=== PATIENT | male | born 1990 | race Caucasian/White ===

== ENCOUNTER 2020-12-28 21:18 | Emergency (ER) | payer SELFPAY ==
[2020-12-28] MEDS ORDERED: Sodium Chloride 0.9% 10 ML Syringe FLUSH PRN (21:39)
[2020-12-28] MEDS ORDERED: HYDROmorphone 0.5 MG/0.5 ML Syringe IVPUSH ONE (21:39)
[2020-12-28] MEDS ORDERED: Ondansetron 4 MG/2 ML SDV IVPUSH ONE (21:39)
[2020-12-28] MEDS ORDERED: Famotidine 20 MG/2 ML SDV IVPUSH ONE (21:39)
[2020-12-28] MEDS ORDERED: Sodium Chloride 0.9% 1,000 ML IV SCH (21:45)
[2020-12-29] MEDS ORDERED: Lactated Ringers 1,000 ML IV ONE (00:15)
--- NOTE | 2020-12-29 00:54 | EDM.PDOC ---
ED HPI GENERAL MEDICAL PROBLEM - General Chief Complaint: Abdominal Pain Stated Complaint: STOMACH PAIN POSSIBLE OD ON ALLERGY MED Time Seen by Provider: 12/28/20 21:27 Source of Information: Reports: Patient, RN Notes Reviewed - History of Present Illness INITIAL COMMENTS - FREE TEXT/NARRATIVE: Onset of abd pain, not feeling well yesterday, became much more ill after eating out last evening. Has had multiple episodes of vomiting since last evening. Chills. No definite fever. No diarrhea. Pain is mainly upper mid abd without radiation. Abdominal Pain Score (Numeric/FACES): 5 - Related Data Allergies Allergy/AdvReac Type Severity Reaction Status Date / Time No Known Allergies Allergy Verified 12/28/20 21:33 Home Meds: Home Meds Loratadine [Claritin] 1 mg PO DAILY 12/28/20 [History] Past Medical History - Past Health History Medical/Surgical History: Denies Medical/Surgical History - Infectious Disease History Infectious Disease History: Reports: Novel Coronavirus Social & Family History - Tobacco Use Tobacco Use Status *Q: Never Tobacco User Second Hand Smoke Exposure: No - Caffeine Use Caffeine Use: Reports: None - Alcohol Use Days Per Week of Alcohol Use: 7 Number of Drinks Per Day: 6 Total Drinks Per Week: 42 - Recreational Drug Use Recreational Drug Use: Yes Recreational Drug Type: Reports: Marijuana/Hashish Recreational Drug Use Frequency: Daily ED ROS GENERAL - Review of Systems Review Of Systems: See Below Constitutional: Reports: Chills. Denies: Fever HEENT: Reports: No Symptoms Respiratory: Denies: Shortness of Breath Cardiovascular: Denies: Chest Pain GI/Abdominal: Reports: Abdominal Pain, Nausea, Vomiting. Denies: Constipation, Diarrhea Musculoskeletal: Denies: Back Pain Skin: Reports: No Symptoms Neurological: Reports: Dizziness ED EXAM, GI/ABD - Physical Exam Exam: See Below General Appearance: Alert, No Apparent Distress Throat/Mouth: Normal Inspection Head: Atraumatic Neck: Supple Respiratory/Chest: No Respiratory Distress, Lungs Clear, Normal Breath Sounds Cardiovascular: Regular Rate, Rhythm GI/Abdominal Exam: Soft, Tender (upper mid abd, lower abd and RLQ nontender). No: Guarding, Rebound Back Exam: No: CVA Tenderness (L), CVA Tenderness (R) Extremities: Normal Inspection Neurological: Alert, Oriented, No Motor/Sensory Deficits Skin Exam: Warm, Dry, Normal Color, No Rash Course - Vital Signs Last Recorded V/S: Last Vital Signs Temp 96.9 F 12/28/20 21:28 Pulse 72 12/28/20 21:28 Resp 25 H 12/28/20 21:28 BP 127/86 12/28/20 21:28 Pulse Ox 100 12/28/20 21:28 - Orders/Labs/Meds Orders: Active Orders 24 hr Category Date Time Status Peripheral IV Care [RC] . DIRECTED Care 12/28/20 21:40 Active Lactated Ringers [Ringers, Lactated] 1,000 ml Med 12/29/20 00:15 Active IV .BOLUS Sodium Chloride 0.9% [Normal Saline] 1,000 ml Med 12/28/20 21:45 Active IV ONETIME Sodium Chloride 0.9% [Saline Flush] Med 12/28/20 21:39 Active 10 ml FLUSH ASDIRECTED PRN Peripheral IV Insertion Adult [OM.PC] Stat Oth 12/28/20 21:39 Ordered Medication Orders Sodium Chloride (Normal Saline) 1,000 mls @ 999 mls/hr IV ONETIME [facility] Last Admin: 12/28/20 21:51 Dose: 999 mls/hr Documented by: HERMMIC Lactated Ringer's (Ringers, Lactated) 1,000 mls @ 999 mls/hr IV .BOLUS ONE Stop: 12/29/20 01:15 Last Admin: 12/29/20 00:24 Dose: 999 mls/hr Documented by: HERMMIC Sodium Chloride (Sodium Chloride 0.9% 10 Ml Syringe) 10 ml FLUSH ASDIRECTED PRN PRN Reason: Keep Vein Open Last Admin: 12/28/20 21:55 Dose: 10 ml Documented by: HERMMIC Labs: Laboratory Tests 12/28/20 12/28/20 12/28/20 Range/Units 21:27 21:27 21:27 WBC 12.16 H (4.23-9.07) K/mm3 RBC 5.33 (4.63-6.08) M/mm3 Hgb 15.8 (13.7-17.5) gm/dl Hct 46.8 (40.1-51.0) % MCV 87.8 (79.0-92.2) fl MCH 29.6 (25.7-32.2) pg MCHC 33.8 (32.2-35.5) g/dl RDW Std Deviation 41.9 (35.1-43.9) fL Plt Count 324 (163-337) K/mm3 MPV 10.4 (9.4-12.3) fl Neut % (Auto) 69.4 H (34.0-67.9) % Lymph % (Auto) 19.7 L (21.8-53.1) % [place] % (Auto) 10.2 (5.3-12.2) % Eos % (Auto) 0.4 L (0.8-7.0) Baso % (Auto) 0.1 (0.1-1.2) % Neut # (Auto) 8.44 H (1.78-5.38) K/mm3 Lymph # (Auto) 2.39 (1.32-3.57) K/mm3 [place] # (Auto) 1.24 H (0.30-0.82) K/mm3 Eos # (Auto) 0.05 (0.04-0.54) K/mm3 Baso # (Auto) 0.01 (0.01-0.08) K/mm3 Manual Slide Review Normal smear Sodium 143 (136-145) mEq/L Potassium 3.5 (3.5-5.1) mEq/L Chloride 103 (98-107) mEq/L Carbon Dioxide 25 (21-32) mEq/L Anion Gap 18.5 H (5-15) BUN 9 (7-18) mg/dL Creatinine 1.2 (0.7-1.3) mg/dL Est Cr Clr Drug Dosing 91.25 mL/min Estimated GFR (MDRD) > 60 (>60) mL/min BUN/Creatinine Ratio 7.5 L (14-18) Glucose 118 H (70-99) mg/dL Calcium 10.1 (8.5-10.1) mg/dL Total Bilirubin 0.6 (0.2-1.0) mg/dL AST 16 (15-37) U/L ALT 54 (16-63) U/L Alkaline Phosphatase 84 (46-116) U/L C-Reactive Protein <0.2 (<1.0) mg/dL Total Protein 8.8 H (6.4-8.2) g/dl Albumin 4.6 (3.4-5.0) g/dl Globulin 4.2 gm/dL Albumin/Globulin Ratio 1.1 (1-2) Lipase 86 (73-393) U/L SARS-CoV-2 RNA (DEREK) (NEGATIVE) 12/28/20 Range/Units 22:00 WBC (4.23-9.07) K/mm3 RBC (4.63-6.08) M/mm3 Hgb (13.7-17.5) gm/dl Hct (40.1-51.0) % MCV (79.0-92.2) fl MCH (25.7-32.2) pg MCHC (32.2-35.5) g/dl RDW Std Deviation (35.1-43.9) fL Plt Count (163-337) K/mm3 MPV (9.4-12.3) fl Neut % (Auto) (34.0-67.9) % Lymph % (Auto) (21.8-53.1) % [place] % (Auto) (5.3-12.2) % Eos % (Auto) (0.8-7.0) Baso % (Auto) (0.1-1.2) % Neut # (Auto) (1.78-5.38) K/mm3 Lymph # (Auto) (1.32-3.57) K/mm3 [place] # (Auto) (0.30-0.82) K/mm3 Eos # (Auto) (0.04-0.54) K/mm3 Baso # (Auto) (0.01-0.08) K/mm3 Manual Slide Review Sodium (136-145) mEq/L Potassium (3.5-5.1) mEq/L Chloride (98-107) mEq/L Carbon Dioxide (21-32) mEq/L Anion Gap (5-15) BUN (7-18) mg/dL Creatinine (0.7-1.3) mg/dL Est Cr Clr Drug Dosing mL/min Estimated GFR (MDRD) (>60) mL/min BUN/Creatinine Ratio (14-18) Glucose (70-99) mg/dL Calcium (8.5-10.1) mg/dL Total Bilirubin (0.2-1.0) mg/dL AST (15-37) U/L ALT (16-63) U/L Alkaline Phosphatase (46-116) U/L C-Reactive Protein (<1.0) mg/dL Total Protein (6.4-8.2) g/dl Albumin (3.4-5.0) g/dl Globulin gm/dL Albumin/Globulin Ratio (1-2) Lipase (73-393) U/L SARS-CoV-2 RNA (DEREK) Negative (NEGATIVE) Meds: Medications Generic Name Dose Route Start Last Admin Trade Name Freq PRN Reason Stop Dose Admin Sodium Chloride 1,000 mls @ 999 mls/hr 12/28/20 21:45 12/28/20 21:51 Normal Saline IV 999 mls/hr ONETIME ANU Administration Lactated Ringer's 1,000 mls @ 999 mls/hr 12/29/20 00:15 12/29/20 00:24 Ringers, Lactated IV 12/29/20 01:15 999 mls/hr .BOLUS ONE Administration Sodium Chloride 10 ml 12/28/20 21:39 12/28/20 21:55 Sodium Chloride 0.9% 10 Ml Syringe FLUSH 10 ml ASDIRECTED PRN Administration Keep Vein Open Discontinued Medications Generic Name Dose Route Start Last Admin Trade Name Freq PRN Reason Stop Dose Admin Famotidine 20 mg 12/28/20 21:39 12/28/20 21:52 Famotidine 20 Mg/2 Ml Sdv IVPUSH 12/28/20 21:40 20 mg ONETIME ONE Administration Hydromorphone HCl 0.5 mg 12/28/20 21:39 12/28/20 21:52 Hydromorphone 0.5 Mg/0.5 Ml Syringe IVPUSH 12/28/20 21:40 0.5 mg ONETIME ONE Administration Ondansetron HCl 4 mg 12/28/20 21:39 12/28/20 21:52 Ondansetron 4 Mg/2 Ml Sdv IVPUSH 12/28/20 21:40 4 mg ONETIME ONE Administration - Re-Assessments/Exams Free Text/Narrative Re-Assessment/Exam: 12/29/20 00:57 WBC mildly elevated, CRP 0.2, anion gap is elevated. Feels better after zofran, 1 liter NS. Still has not voided so 2nd liter IV fluid ordered. Discharge instr. as documented. Departure - Departure Time of Disposition: 00:53 Disposition: Home, Self-Care 01 Condition: Fair Clinical Impression: Abdominal pain, Vomiting - Discharge Information Referrals: PCP,None [Primary Care Provider] - Forms: ED Department Discharge Additional Instructions: Clear liquids only until tomorrow afternoon, than careful bland diet as jeny rated. Follow up clinic if not back to normal within 1 to 2 days as expected. Return to ED as needed if symptoms worsening in any way. Sepsis Event Note (ED) - Evaluation Sepsis Screening Result: No Definite Risk - Focused Exam Vital Signs: Vital Signs Temp Pulse Resp BP Pulse Ox 12/28/20 21:28 96.9 F 72 25 H 127/86 100 - My Orders Last 24 Hours: My Active Orders 12/28/20 21:39 Sodium Chloride 0.9% [Saline Flush] 10 ml FLUSH ASDIRECTED PRN Peripheral IV Insertion Adult [OM.PC] Stat 12/28/20 21:40 Peripheral IV Care [RC] . DIRECTED 12/28/20 21:45 Sodium Chloride 0.9% [Normal Saline] 1,000 ml IV ONETIME 12/29/20 00:15 Lactated Ringers [Ringers, Lactated] 1,000 ml IV .BOLUS - Assessment/Plan Last 24 Hours: My Active Orders 12/28/20 21:39 Sodium Chloride 0.9% [Saline Flush] 10 ml FLUSH ASDIRECTED PRN Peripheral IV Insertion Adult [OM.PC] Stat 12/28/20 21:40 Peripheral IV Care [RC] . DIRECTED 12/28/20 21:45 Sodium Chloride 0.9% [Normal Saline] 1,000 ml IV ONETIME 12/29/20 00:15 Lactated Ringers [Ringers, Lactated] 1,000 ml IV .BOLUS
== END 2020-12-29 01:55 | disposition home or self-care (01) ==
LOC: JD.ED 21:18
DX: R10.31 Right lower quadrant pain (principal); R11.2 Nausea with vomiting, unspecified; Z20.822 Contact with and (suspected) exposure to COVID-19
CPT/HCPCS: 36415; 80053; 83690; 85025; 86140; 87635; 96374; 96375; 99284; J1170; J2405; J3490; J7030; J7120; 99283; U0002

== ENCOUNTER 2020-12-30 00:14 | Emergency (ER) | payer SELFPAY ==
[2020-12-30] MEDS ORDERED: Ondansetron 4 MG/2 ML SDV IVPUSH ONE (01:41)
[2020-12-30] MEDS ORDERED: Sodium Chloride 0.9% 10 ML Syringe FLUSH PRN (01:41)
[2020-12-30] MEDS ORDERED: Sodium Chloride 0.9% 1,000 ML IV SCH (01:45)
[2020-12-30] MEDS ORDERED: Magnesium Hydroxide 400 MG/5 ML Susp 30 ML Cup PO ONE (02:45)
--- NOTE | 2020-12-30 03:00 | EDM.PDOC ---
ED HPI GENERAL MEDICAL PROBLEM - General Chief Complaint: Gastrointestinal Problem Stated Complaint: THROWING UP Time Seen by Provider: 12/30/20 01:35 Source of Information: Reports: Patient, RN Notes Reviewed - History of Present Illness INITIAL COMMENTS - FREE TEXT/NARRATIVE: 30 yr old male returns after an episode of vomiting and quite severe dizziness. He has been ill for almost 4 days, was seen in this ED about 24 hrs ago for nausea, vomiting, mild upper abd pain. He states he was feeling better today, had a light lunch, had a hot dog for dinner and than became ill a few hrs after that with nausea, vomiting, lightheadedness, now better. No current abd pain. Has had some chills, no definite fever. Abdominal Pain Score (Numeric/FACES): 7 - Related Data Allergies Allergy/AdvReac Type Severity Reaction Status Date / Time No Known Allergies Allergy Verified 12/30/20 01:33 Home Meds: Home Meds Loratadine [Claritin] 1 mg PO DAILY 12/28/20 [History] Ondansetron [Zofran ODT] 4 mg PO Q8HR PRN #7 tab.dis 12/30/20 [Rx] Past Medical History - Past Health History Medical/Surgical History: Denies Medical/Surgical History - Infectious Disease History Infectious Disease History: Reports: Novel Coronavirus Social & Family History - Family History Family Medical History: No Pertinent Family History - Tobacco Use Tobacco Use Status *Q: Never Tobacco User Second Hand Smoke Exposure: No - Caffeine Use Caffeine Use: Reports: Coffee - Alcohol Use Days Per Week of Alcohol Use: 4 Number of Drinks Per Day: 6 Total Drinks Per Week: 24 Date of Last Drink: 12/27/20 Time of Last Drink: 20:00 - Recreational Drug Use Recreational Drug Use: Yes Drug Use in Last 12 Months: Yes Recreational Drug Type: Reports: Marijuana/Hashish Recreational Drug Use Frequency: Daily ED ROS GENERAL - Review of Systems Review Of Systems: See Below Constitutional: Reports: Chills. Denies: Fever HEENT: Reports: No Symptoms Respiratory: Denies: Shortness of Breath Cardiovascular: Denies: Chest Pain GI/Abdominal: Reports: Abdominal Pain (gone), Constipation (mild), Nausea, Vomiting. Denies: Diarrhea Musculoskeletal: Denies: Back Pain Neurological: Reports: Dizziness (gone) ED EXAM, GI/ABD - Physical Exam Exam: See Below General Appearance: Alert, No Apparent Distress Throat/Mouth: Normal Inspection Head: Atraumatic Neck: Supple Respiratory/Chest: No Respiratory Distress, Lungs Clear, Normal Breath Sounds Cardiovascular: Regular Rate, Rhythm GI/Abdominal Exam: Soft, Non-Tender. No: Guarding, Rebound Extremities: Normal Inspection, Normal Range of Motion Neurological: Alert, Oriented, No Motor/Sensory Deficits Skin Exam: Warm, Dry, Normal Color Course - Vital Signs Last Recorded V/S: Last Vital Signs Temp 96.6 F L 12/30/20 01:30 Pulse 80 12/30/20 01:30 Resp 18 12/30/20 01:30 BP 151/114 H 12/30/20 01:30 Pulse Ox 94 L 12/30/20 01:30 - Orders/Labs/Meds Orders: Active Orders 24 hr Category Date Time Status Abdomen 2V AP Flat Upright [CR] Stat Exams 12/30/20 01:42 Taken Peripheral IV Insertion Adult [OM.PC] Stat Oth 12/30/20 01:41 Ordered Labs: Laboratory Tests 12/30/20 12/30/20 12/30/20 Range/Units 01:36 01:36 01:36 WBC 15.17 H (4.23-9.07) K/mm3 RBC 5.19 (4.63-6.08) M/mm3 Hgb 15.3 (13.7-17.5) gm/dl Hct 46.4 (40.1-51.0) % MCV 89.4 (79.0-92.2) fl MCH 29.5 (25.7-32.2) pg MCHC 33.0 (32.2-35.5) g/dl RDW Std Deviation 43.3 (35.1-43.9) fL Plt Count 303 (163-337) K/mm3 MPV 10.3 (9.4-12.3) fl Neut % (Auto) 81.9 H (34.0-67.9) % Lymph % (Auto) 10.9 L (21.8-53.1) % [place] % (Auto) 6.3 (5.3-12.2) % Eos % (Auto) 0.3 L (0.8-7.0) Baso % (Auto) 0.2 (0.1-1.2) % Neut # (Auto) 12.42 H (1.78-5.38) K/mm3 Lymph # (Auto) 1.66 (1.32-3.57) K/mm3 [place] # (Auto) 0.96 H (0.30-0.82) K/mm3 Eos # (Auto) 0.04 (0.04-0.54) K/mm3 Baso # (Auto) 0.03 (0.01-0.08) K/mm3 Manual Slide Review Normal smear Sodium 142 (136-145) mEq/L Potassium 3.7 (3.5-5.1) mEq/L Chloride 102 (98-107) mEq/L Carbon Dioxide 27 (21-32) mEq/L Anion Gap 16.7 H (5-15) BUN 9 (7-18) mg/dL Creatinine 1.3 (0.7-1.3) mg/dL Est Cr Clr Drug Dosing TNP Estimated GFR (MDRD) > 60 (>60) mL/min BUN/Creatinine Ratio 6.9 L (14-18) Glucose 136 H (70-99) mg/dL Calcium 9.5 (8.5-10.1) mg/dL Total Bilirubin 0.4 (0.2-1.0) mg/dL AST 55 H (15-37) U/L ALT 81 H (16-63) U/L Alkaline Phosphatase 79 (46-116) U/L C-Reactive Protein <0.2 (<1.0) mg/dL Total Protein 8.4 H (6.4-8.2) g/dl Albumin 4.3 (3.4-5.0) g/dl Globulin 4.1 gm/dL Albumin/Globulin Ratio 1.1 (1-2) Meds: Medications Discontinued Medications Generic Name Dose Route Start Last Admin Trade Name Freq PRN Reason Stop Dose Admin Sodium Chloride 1,000 mls @ 999 mls/hr 12/30/20 01:45 12/30/20 01:57 Normal Saline IV 999 mls/hr ONETIME ANU Administration Magnesium Hydroxide 30 ml 12/30/20 02:45 12/30/20 02:54 Magnesium Hydroxide 400 Mg/5 Ml Susp 30 Ml Cup PO 12/30/20 02:46 30 ml ONETIME ONE Administration Ondansetron HCl 4 mg 12/30/20 01:41 12/30/20 01:57 Ondansetron 4 Mg/2 Ml Sdv IVPUSH 12/30/20 01:42 4 mg ONETIME ONE Administration Sodium Chloride 10 ml 12/30/20 01:41 12/30/20 01:57 Sodium Chloride 0.9% 10 Ml Syringe FLUSH 10 ml ASDIRECTED PRN Administration Keep Vein Open - Re-Assessments/Exams Free Text/Narrative Re-Assessment/Exam: 12/30/20 03:04 WBC mildly elevated, CRP 0.2., AST, ALT slightly elevated, were normal yesterday. suspect this is a viral illness, Flat and upright abd show moderate stool in the colon, no air fluid levels. He does not hav a surgical abd at this time. He feels a lot better at time of reexam a short time ago, Abd remainds soft and nontender. Abd CT not clinically indicated at this time. Strong return precautions given. Pt is comfortable with that plan. Departure - Departure Time of Disposition: 03:10 Disposition: Home, Self-Care 01 Condition: Fair Clinical Impression: Vomiting, Viral syndrome - Discharge Information Prescriptions: Ondansetron [Zofran ODT] 4 mg PO Q8HR PRN #7 tab.dis PRN Reason: Nausea/Vomiting Referrals: PCP,None [Primary Care Provider] - Forms: ED Department Discharge Additional Instructions: Rest. Clear liquids until this afternoon, than very careful bland diet as tolerated. Zofran if needed for any further nausea or vomiting. Prescription has been sent to [facility] on [address]. Follow up clinic if not back to normal within 1 to 2 days. Return to ED as needed if symptoms worsening in any way, especially if pain localizing to right lower abdomen. Sepsis Event Note (ED) - Evaluation Sepsis Screening Result: No Definite Risk - Focused Exam Vital Signs: Vital Signs Temp Pulse Resp BP Pulse Ox 12/30/20 01:30 96.6 F L 80 18 151/114 H 94 L - My Orders Last 24 Hours: My Active Orders 12/30/20 01:41 Peripheral IV Insertion Adult [OM.PC] Stat 12/30/20 01:42 Abdomen 2V AP Flat Upright [CR] Stat - Assessment/Plan Last 24 Hours: My Active Orders 12/30/20 01:41 Peripheral IV Insertion Adult [OM.PC] Stat 12/30/20 01:42 Abdomen 2V AP Flat Upright [CR] Stat
--- NOTE | 2020-12-30 08:05 | CR ---
Abdomen: Supine and upright views of the abdomen were obtained. Comparison: No previous study. Bowel gas pattern appears normal. Calcification is seen within the left pelvis which is compatible with phlebolith. No free air is seen. Visualized lung bases are clear. Bony structures are unremarkable. Impression: 1. Nothing acute is seen on 2 view abdominal x-ray. Diagnostic code #1
== END 2020-12-30 03:13 | disposition home or self-care (01) ==
LOC: JD.ED 00:14
DX: R11.10 Vomiting, unspecified (principal); B34.9 Viral infection, unspecified; Z86.16 Personal history of COVID-19
CPT/HCPCS: 36415; 74019; 80053; 85025; 86140; 96374; 99284; A9270; J2405; J7030; 99283

== ENCOUNTER 2021-01-03 22:34 | Emergency (ER) | payer OTHER ==
[2021-01-03] MEDS ORDERED: Ondansetron 4 MG/2 ML SDV IVPUSH ONE (23:42)
[2021-01-03] MEDS ORDERED: Sodium Chloride 0.9% 1,000 ML IV SCH (23:45)
[2021-01-04] MEDS: Sodium Chloride 0.9% 10 ML Syringe FLUSH PRN ×2 (00:15→01:14)
--- NOTE | 2021-01-04 00:30 | EDM.PDOC ---
ED HPI GENERAL MEDICAL PROBLEM - General Chief Complaint: Respiratory Problem Stated Complaint: COVID POSITIVE Time Seen by Provider: 01/03/21 23:13 Source of Information: Reports: Patient, Family History Limitations: Reports: No Limitations - History of Present Illness INITIAL COMMENTS - FREE TEXT/NARRATIVE: The patient presents with dizziness, nausea, and COVID infection. He also has chills but no fever. His head does not feel right and he feels like he is in a fog. He has no chest pain or shortness of breath. He was seen at the ER at [facility] in [place] on Wednesday. He tested positive for COVID 19. They did a CT of his head because he was dizzy and that looked good. They gave him meclizine and phenergan. He has some double vision at times. He has no real cough, chest pain, shortness of breath or abdominal pain. He has no headache but his head does not feel right. He has no numbness or weakness. He did need some help to walk back. He said he had COVID back in April but it was very mild like a mild cold. Onset: Gradual Duration: Day(s): (4) Location: Reports: Head Quality: Reports: Other (not feeling right) Severity: Moderate Improves with: Reports: None Worsens with: Reports: None Associated Symptoms: Reports: Fever/Chills, Nausea/Vomiting. Denies: Chest Pain, Cough, Headaches, Shortness of Breath - Related Data Allergies Allergy/AdvReac Type Severity Reaction Status Date / Time No Known Allergies Allergy Verified 12/30/20 01:33 Home Meds: Home Meds Loratadine [Claritin] 1 mg PO DAILY 12/28/20 [History] Ascorbate Calcium [Vitamin C] 500 mg PO TID 01/03/21 [History] Cholecalciferol (Vitamin D3) [Vitamin D3] 50,000 unit PO DAILY 01/03/21 [History] Meclizine [Antivert] 25 mg PO ASDIRECTED 01/03/21 [History] Promethazine HCl [Phenergan] 1 applic TOP Q6H PRN 01/03/21 [History] Quercetin Dihydrate 1 gram PO DAILY 01/03/21 [History] Saccharomyces Boulardii [Daily Probiotic] 250 mg PO DAILY 01/03/21 [History] Zinc 50 mg PO DAILY 01/03/21 [History] Past Medical History - Past Health History Medical/Surgical History: Denies Medical/Surgical History - Infectious Disease History Infectious Disease History: Reports: Chicken Pox, Novel Coronavirus Social & Family History - Family History Family Medical History: No Pertinent Family History - Tobacco Use Tobacco Use Status *Q: Never Tobacco User - Caffeine Use Caffeine Use: Reports: Coffee, Soda, Tea - Recreational Drug Use Recreational Drug Type: Reports: Marijuana/Hashish Other Recreational Drug Type: daily ED ROS GENERAL - Review of Systems Review Of Systems: See Below Constitutional: Reports: Chills, Malaise, Weakness, Fatigue. Denies: Fever HEENT: Reports: No Symptoms Respiratory: Reports: No Symptoms Cardiovascular: Reports: No Symptoms Endocrine: Reports: No Symptoms GI/Abdominal: Reports: Nausea. Denies: Abdominal Pain, Diarrhea, Vomiting : Reports: No Symptoms ED EXAM, GENERAL - Physical Exam Exam: See Below Exam Limited By: No Limitations General Appearance: Alert, No Apparent Distress Eye Exam: Bilateral Eye: EOMI, PERRL Ears: Normal External Exam Nose: Normal Inspection Head: Atraumatic, Normocephalic Neck: Normal Inspection, Supple, Non-Tender Respiratory/Chest: No Respiratory Distress, Lungs Clear, Normal Breath Sounds Cardiovascular: Regular Rate, Rhythm, No Edema, No Murmur GI/Abdominal: Soft, Non-Tender, No Organomegaly, No Mass Back Exam: Normal Inspection Extremities: Normal Inspection Neurological: Alert, Oriented, No Motor/Sensory Deficits Course - Vital Signs Last Recorded V/S: Last Vital Signs Temp 97.0 F 01/03/21 23:25 Pulse 70 01/03/21 23:25 Resp BP 139/104 H 01/03/21 23:25 Pulse Ox 98 01/03/21 23:25 - Orders/Labs/Meds Orders: Active Orders 24 hr Category Date Time Status Cardiac Monitoring [RC] . DIRECTED Care 01/03/21 23:41 Active Peripheral IV Care [RC] . DIRECTED Care 01/03/21 23:41 Active Ang Head [CT] Stat Exams 01/03/21 23:42 Taken Sodium Chloride 0.9% [Normal Saline] 1,000 ml Med 01/03/21 23:45 Active IV .BOLUS Sodium Chloride 0.9% [Normal Saline] 100 ml Med 01/04/21 01:15 Active IV ASDIRECTED Sodium Chloride 0.9% [Saline Flush] Med 01/03/21 23:41 Active 10 ml FLUSH ASDIRECTED PRN Sodium Chloride 0.9% [Saline Flush] Med 01/04/21 01:15 Active 10 ml FLUSH BOLUS ED Antiemetic Medication Reflex [OM.PC] Stat Ot 01/03/21 23:41 Ordered Peripheral IV Insertion Adult [OM.PC] Stat Ot 01/03/21 23:41 Ordered Medication Orders Sodium Chloride (Normal Saline) 1,000 mls @ 1,000 mls/hr IV .BOLUS [facility] Last Admin: 01/04/21 00:15 Dose: 1,000 mls/hr Documented by: ELVI Sodium Chloride (Normal Saline) 100 mls @ 60 drops/min IV ASDIRECTED ANU Last Admin: 01/04/21 01:14 Dose: 60 drops/min Documented by: EMILEE Sodium Chloride (Sodium Chloride 0.9% 10 Ml Syringe) 10 ml FLUSH ASDIRECTED PRN PRN Reason: Keep Vein Open Last Admin: 01/04/21 01:14 Dose: 10 ml Documented by: Admin: 01/04/21 00:15 Dose: 10 ml Documented by: ELVI Sodium Chloride (Sodium Chloride 0.9% 10 Ml Syringe) 10 ml FLUSH BOLUS [facility] Labs: Laboratory Tests 01/03/21 01/03/21 01/03/21 Range/Units 00:00 00:00 00:00 WBC 9.95 H (4.23-9.07) K/mm3 RBC 5.20 (4.63-6.08) M/mm3 Hgb 15.2 (13.7-17.5) gm/dl Hct 46.0 (40.1-51.0) % MCV 88.5 (79.0-92.2) fl MCH 29.2 (25.7-32.2) pg MCHC 33.0 (32.2-35.5) g/dl RDW Std Deviation 41.6 (35.1-43.9) fL Plt Count 285 (163-337) K/mm3 MPV 10.3 (9.4-12.3) fl Neut % (Auto) 77.1 H (34.0-67.9) % Lymph % (Auto) 12.4 L (21.8-53.1) % [place] % (Auto) 9.5 (5.3-12.2) % Eos % (Auto) 0.6 L (0.8-7.0) Baso % (Auto) 0.2 (0.1-1.2) % Neut # (Auto) 7.67 H (1.78-5.38) K/mm3 Lymph # (Auto) 1.23 L (1.32-3.57) K/mm3 [place] # (Auto) 0.95 H (0.30-0.82) K/mm3 Eos # (Auto) 0.06 (0.04-0.54) K/mm3 Baso # (Auto) 0.02 (0.01-0.08) K/mm3 PT 10.9 (9.7-12.0) SECONDS INR 1.02 APTT 25.7 (21.7-31.4) SECONDS D-Dimer, Quantitative < 0.19 L (0.19-0.50) mg/L Sodium 135 L (136-145) mEq/L Potassium 3.7 (3.5-5.1) mEq/L Chloride 100 (98-107) mEq/L Carbon Dioxide 26 (21-32) mEq/L Anion Gap 12.7 (5-15) BUN 9 (7-18) mg/dL Creatinine 1.2 (0.7-1.3) mg/dL Est Cr Clr Drug Dosing 91.25 mL/min Estimated GFR (MDRD) > 60 (>60) mL/min BUN/Creatinine Ratio 7.5 L (14-18) Glucose 109 H (70-99) mg/dL Calcium 9.2 (8.5-10.1) mg/dL Total Bilirubin 0.7 (0.2-1.0) mg/dL AST 17 (15-37) U/L ALT 61 (16-63) U/L Alkaline Phosphatase 77 (46-116) U/L C-Reactive Protein <0.2 (<1.0) mg/dL Total Protein 7.9 (6.4-8.2) g/dl Albumin 4.2 (3.4-5.0) g/dl Globulin 3.7 gm/dL Albumin/Globulin Ratio 1.1 (1-2) Meds: Medications Generic Name Dose Route Start Last Admin Trade Name Freq PRN Reason Stop Dose Admin Sodium Chloride 1,000 mls @ 1,000 mls/hr 01/03/21 23:45 01/04/21 00:15 Normal Saline IV 1,000 mls/hr .BOLUS ANU Administration Sodium Chloride 100 mls @ 60 drops/min 01/04/21 01:15 01/04/21 01:14 Normal Saline IV 60 drops/min ASDIRECTED ANU Administration Sodium Chloride 10 ml 01/03/21 23:41 01/04/21 01:14 Sodium Chloride 0.9% 10 Ml Syringe FLUSH 10 ml ASDIRECTED PRN Administration Keep Vein Open Sodium Chloride 10 ml 01/04/21 01:15 Sodium Chloride 0.9% 10 Ml Syringe FLUSH BOLUS ANU Discontinued Medications Generic Name Dose Route Start Last Admin Trade Name Mirella PRN Reason Stop Dose Admin Iopamidol 100 ml 01/04/21 01:12 01/04/21 01:14 Iopamidol 612 Mg/Ml 100 Ml Bottle IVPUSH 01/04/21 01:13 100 ml ONETIME ONE Administration Ondansetron HCl 4 mg 01/03/21 23:42 01/04/21 00:15 Ondansetron 4 Mg/2 Ml Sdv IVPUSH 01/03/21 23:43 4 mg ONETIME ONE Administration - Re-Assessments/Exams Free Text/Narrative Re-Assessment/Exam: 01/04/21 00:31 I ordered an IV NS 1L bolus, zofran 4mg IV, labs and a CT angio of his head. 01/04/21 01:14 His WBC was slightly elevated at 9.95. His D-dimer is negative. His PT and PTT look good. His CRP is negative. 01/04/21 02:32 He feels much better. I do not have the CT results back. He wants to go home and I will call him the results if they are abnormal. Departure - Departure Time of Disposition: 02:35 Disposition: Home, Self-Care 01 Condition: Good Clinical Impression: COVID-19, Dizziness - Discharge Information *PRESCRIPTION DRUG MONITORING PROGRAM REVIEWED*: Not Applicable *COPY OF PRESCRIPTION DRUG MONITORING REPORT IN PATIENT CHELSIE: Not Applicable Referrals: PCP,None [Primary Care Provider] - Forms: ED Department Discharge Additional Instructions: Go home and rest. Drink plenty of fluids. Take your medications as prescribed. Follow up with your provider within a week. Please return if you are worse. Sepsis Event Note (ED) - Evaluation Sepsis Screening Result: No Definite Risk - Focused Exam Vital Signs: Vital Signs Temp Pulse BP Pulse Ox 01/03/21 23:25 97.0 F 70 139/104 H 98 - My Orders Last 24 Hours: My Active Orders 01/03/21 23:41 Cardiac Monitoring [RC] . DIRECTED Peripheral IV Care [RC] . DIRECTED Sodium Chloride 0.9% [Saline Flush] 10 ml FLUSH ASDIRECTED PRN ED Antiemetic Medication Reflex [OM.PC] Stat Peripheral IV Insertion Adult [OM.PC] Stat 01/03/21 23:42 Ang Head [CT] Stat 01/03/21 23:45 Sodium Chloride 0.9% [Normal Saline] 1,000 ml IV .BOLUS 01/04/21 01:15 Sodium Chloride 0.9% [Normal Saline] 100 ml IV ASDIRECTED Sodium Chloride 0.9% [Saline Flush] 10 ml FLUSH BOLUS - Assessment/Plan Last 24 Hours: My Active Orders 01/03/21 23:41 Cardiac Monitoring [RC] . DIRECTED Peripheral IV Care [RC] . DIRECTED Sodium Chloride 0.9% [Saline Flush] 10 ml FLUSH ASDIRECTED PRN ED Antiemetic Medication Reflex [OM.PC] Stat Peripheral IV Insertion Adult [OM.PC] Stat 01/03/21 23:42 Ang Head [CT] Stat 01/03/21 23:45 Sodium Chloride 0.9% [Normal Saline] 1,000 ml IV .BOLUS 01/04/21 01:15 Sodium Chloride 0.9% [Normal Saline] 100 ml IV ASDIRECTED Sodium Chloride 0.9% [Saline Flush] 10 ml FLUSH BOLUS
[2021-01-04] MEDS ORDERED: Iopamidol 612 MG/ML 100 ML Bottle IVPUSH ONE (01:12)
[2021-01-04] MEDS ORDERED: Sodium Chloride 0.9% 100 ML IV SCH (01:15)
[2021-01-04] MEDS ORDERED: Sodium Chloride 0.9% 10 ML Syringe FLUSH SCH (01:15)
--- NOTE | 2021-01-04 08:29 | CT ---
CT angiogram of neck and brain Technique: Multiple noncontrast images initially obtained through the neck and head. Intravenous contrast and given an imaging obtained during the arterial phase. Reconstructed images were obtained. Comparison: No prior neck or head imaging is available. Findings: Right common carotid artery: Patent with no stenosis, occlusion or dissection. Right internal carotid artery: Patent with no stenosis, occlusion or dissection Right external carotid artery: Patent with no stenosis, occlusion or dissection. Right vertebral: Patent with no stenosis, occlusion or dissection Left common carotid artery: Patent with no stenosis, occlusion or dissection Left internal carotid artery: Patent with no stenosis, occlusion or dissection Left external carotid artery: Patent with no stenosis, occlusion or dissection. Left vertebral: Patent with no stenosis, occlusion or dissection Anterior cerebral artery: Patent with no stenosis or occlusion Middle cerebral arteries: Patent with no stenosis or occlusion Posterior cerebral arteries: Patent with no stenosis or occlusion. Impression: 1. No vascular abnormality is appreciated on CT angiogram study of the neck and brain. Diagnostic code #1 I agree with preliminary report from [facility], finalized on 01/04/21, 4:02 AM CDT, code 1
== END 2021-01-04 02:45 | disposition home or self-care (01) ==
LOC: JD.ED 22:34
DX: U07.1 COVID-19 (principal)
CPT/HCPCS: 36415; 70496; 80053; 85025; 85379; 85610; 85730; 86140; 96374; 99284; J2405; J7030; Q9967

== ENCOUNTER 2023-01-25 20:49 | Emergency (ER) | payer MEDICAID ==
[2023-01-25 21:50] LABS: BASOPHILS ABSOLUTE AUTO 0.01 K/mm3 (0.01-0.08); BASOPHILS PERCENT AUTO 0.2 % (0.1-1.2); EOSINOPHILS PERCENT AUTO 1.8 (0.8-7.0); HEMATOCRIT 39.8 % (40.1-51.0); LYMPHOCYTES ABSOLUTE AUTO 1.02 K/mm3 (1.32-3.57); LYMPHOCYTES PERCENT AUTO 18.5 % (21.8-53.1); MEAN CORPUSCULAR HEMOGLOBIN 29.3 pg (25.7-32.2); MEAN CORPUSCULAR HGB CONC 32.7 g/dl (32.2-35.5); MEAN CORPUSCULAR VOLUME 89.6 fl (79.0-92.2); MEAN PLATELET VOLUME 9.9 fl (9.4-12.3); MONOCYTES ABSOLUTE AUTO 0.65 K/mm3 (0.30-0.82); MONOCYTES PERCENT AUTO 11.8 % (5.3-12.2); NEUTROPHILS ABSOLUTE AUTO 3.72 K/mm3 (1.78-5.38); NEUTROPHILS PERCENT AUTO 67.7 % (34.0-67.9); PLATELET COUNT,PLT 248 K/mm3 (163-337); RED BLOOD CELL COUNT 4.44 M/mm3 (4.63-6.08)
[2023-01-25 22:06] LABS: INR 0.95; PROTHROMBIN TIME 10.2 SECONDS (9.7-12.0)
[2023-01-25 22:09] LABS: D-DIMER QUANTITATIVE < 0.19 mg/L (0.19-0.50)
[2023-01-25 22:28] LABS: A/G RATIO 1.1 (1-2); ALANINE AMINOTRANSFERASE,ALT 42 U/L (16-63); ALBUMIN 3.7 g/dl (3.4-5.0); ALKALINE PHOSPHATASE 54 U/L (46-116); ASPARTATE AMNIOTRANSFERASE,AST 22 U/L (15-37); BILIRUBIN TOTAL 0.2 mg/dL (0.2-1.0); BLOOD UREA NITROGEN,BUN 14 mg/dL (7-18); BUN/CREATININE RATIO 15.6 (14-18); CALCIUM 8.5 mg/dL (8.5-10.1); CARBON DIOXIDE,CO2 24 mEq/L (21-32); CHLORIDE,CL 105 mEq/L (98-107); CREATININE 0.9 mg/dL (0.7-1.3); EST CRCL DRUG DOSING (CG) 119.41 mL/min; ESTIMATED GFR 115 mL/min (>60); GLUCOSE RANDOM 117 mg/dL (70-99); MAGNESIUM 1.9 mg/dL (1.8-2.4); SODIUM,NA 139 mEq/L (136-145)
[2023-01-25 22:34] LABS: TROPONIN I HIGH SENSITIVITY < 4 pg/mL (<=76)
== END 2023-01-25 23:10 | disposition home or self-care (01) ==
LOC: JD.ED 20:49
DX: R07.89 Other chest pain (principal); Z86.16 Personal history of COVID-19
CPT/HCPCS: 36415; 71045; 71045-26; 80053; 83735; 84484; 85025; 85379; 85610; 93005; 99285

== ENCOUNTER 2024-02-23 10:52 | Emergency (ER) | payer BC ==
[2024-02-23] MEDS: Ondansetron 4 MG/2 ML SDV IVPUSH ONE (11:40)
[2024-02-23] MEDS: Meclizine 25 MG Tab PO ONE (11:40)
[2024-02-23] MEDS: Sodium Chloride 0.9% 1,000 ML IV SCH (11:46)
[2024-02-23] MEDS: Sodium Chloride 0.9% 10 ML Syringe FLUSH PRN (11:49)
[2024-02-23 11:52] LABS: BASOPHILS PERCENT AUTO 0.2 % (0.0-1.0); EOSINOPHILS PERCENT AUTO 0.4 % (0.0-6.0); HEMATOCRIT 44.2 % (42.0-52.0); HEMOGLOBIN 14.8 gm/dl (14.0-18.0); IMMATURE GRAN ABSOLUTE AUTO 0.02 K/mm3 (0.00-0.05); IMMATURE GRAN PERCENT AUTO 0.4 % (0.0-0.4); LYMPHOCYTES ABSOLUTE AUTO 0.5 K/mm3 (1.0-4.8); MEAN CORPUSCULAR HEMOGLOBIN 29.3 pg (28.0-32.0); MEAN CORPUSCULAR HGB CONC 33.5 g/dl (32.0-36.0); MEAN CORPUSCULAR VOLUME 87.5 fl (83.0-99.0); MEAN PLATELET VOLUME 10.8 fl (9.4-12.4); MONOCYTES ABSOLUTE AUTO 0.5 K/mm3 (0.0-0.8); NEUTROPHILS ABSOLUTE AUTO 3.8 K/mm3 (1.8-7.7); PLATELET COUNT,PLT 218 K/mm3 (150-400); RED BLOOD CELL COUNT 5.05 M/mm3 (4.52-5.90); WHITE BLOOD CELL COUNT,WBC 4.78 K/mm3 (3.9-11.3)
[2024-02-23 12:51] LABS: A/G RATIO 1.4 (1-2); ALANINE AMINOTRANSFERASE,ALT 41 U/L (16-63); ALBUMIN 3.9 g/dl (3.4-5.0); ALKALINE PHOSPHATASE 47 U/L (46-116); ANION GAP 12.5 (5-15); ASPARTATE AMNIOTRANSFERASE,AST 22 U/L (15-37); BILIRUBIN TOTAL 0.5 mg/dL (0.2-1.0); BLOOD UREA NITROGEN,BUN 11 mg/dL (7-18); BUN/CREATININE RATIO 12.2 (14-18); CALCIUM 8.7 mg/dL (8.5-10.1); CARBON DIOXIDE,CO2 26 mEq/L (21-32); CHLORIDE,CL 106 mEq/L (98-107); CREATININE 0.9 mg/dL (0.7-1.3); EST CRCL DRUG DOSING (CG) 118.29 mL/min; ESTIMATED GFR 114 mL/min (>60); GLUCOSE RANDOM 104 mg/dL (70-99); MAGNESIUM 2.1 mg/dL (1.8-2.4); PROTEIN TOTAL,TP 6.7 g/dl (6.4-8.2); SODIUM,NA 140 mEq/L (136-145)
[2024-02-23 13:13] LABS: TROPONIN I HIGH SENSITIVITY < 4 pg/mL (<=76)
[2024-02-23 13:14] LABS: POTASSIUM,K 4.5 mEq/L (3.5-5.1)
== END 2024-02-23 13:48 | disposition home or self-care (01) ==
LOC: JD.ED 10:52
DX: R42 Dizziness and giddiness (principal); K21.9 Gastro-esophageal reflux disease without esophagitis; Z79.899 Other long term (current) drug therapy
CPT/HCPCS: 36415; 80053; 82947; 83735; 84484; 85025; 93005; 96361; 96374; 99284; J2405; J3490; J7030; 93010; A9270-GY

== ENCOUNTER 2025-05-31 19:56 | Emergency (ER) | payer BC ==
[2025-05-31] MEDS ORDERED: Sodium Chloride 0.9% 10 ML Syringe FLUSH PRN (20:30)
[2025-05-31 20:36] LABS: BASOPHILS ABSOLUTE AUTO 0.0 K/mm3 (0.0-0.2); BASOPHILS PERCENT AUTO 0.2 % (0.0-1.0); EOSINOPHILS ABSOLUTE AUTO 0.1 K/mm3 (0.0-0.4); EOSINOPHILS PERCENT AUTO 0.7 % (0.0-6.0); IMMATURE GRAN ABSOLUTE AUTO 0.03 K/mm3 (0.00-0.05); IMMATURE GRAN PERCENT AUTO 0.4 % (0.0-0.4); LYMPHOCYTES ABSOLUTE AUTO 1.4 K/mm3 (1.0-4.8); LYMPHOCYTES PERCENT AUTO 17.3 % (24.0-44.0); MEAN PLATELET VOLUME 10.2 fl (9.4-12.4); MONOCYTES ABSOLUTE AUTO 0.9 K/mm3 (0.0-0.8); MONOCYTES PERCENT AUTO 11.0 % (0.0-8.0); NEUTROPHILS ABSOLUTE AUTO 5.8 K/mm3 (1.8-7.7); NEUTROPHILS PERCENT AUTO 70.4 % (41.0-71.0); NRBC ABSOLUTE 0.00 (0.00-0.02); NRBC PERCENT 0.0 % (0.0-0.2); PLATELET COUNT,PLT 267 K/mm3 (150-400); RED BLOOD CELL COUNT 5.25 M/mm3 (4.52-5.90); WHITE BLOOD CELL COUNT,WBC 8.20 K/mm3 (3.9-11.3)
[2025-05-31 20:54] LABS: A/G RATIO 1.3 (1-2); ALANINE AMINOTRANSFERASE,ALT 51.0 U/L (16-63); ASPARTATE AMNIOTRANSFERASE,AST 23.0 U/L (15-37); BILIRUBIN TOTAL 0.7 mg/dL (0.2-1.0); BLOOD UREA NITROGEN,BUN 13.0 mg/dL (7-18); CARBON DIOXIDE,CO2 25.0 mEq/L (21-32); CHLORIDE,CL 105.0 mEq/L (98-107); CREATININE 1.1 mg/dL (0.7-1.3); EST CRCL DRUG DOSING (CG) 95.86 mL/min; ESTIMATED GFR 89.0 mL/min (>60); GLUCOSE RANDOM 99.0 mg/dL (70-99); POTASSIUM,K 3.7 mEq/L (3.5-5.1); PROTEIN TOTAL,TP 7.7 g/dl (6.4-8.2); SODIUM,NA 141.0 mEq/L (136-145)
== END 2025-05-31 21:40 | disposition home or self-care (01) ==
LOC: JD.ED 19:56
DX: R42 Dizziness and giddiness (principal); Z86.16 Personal history of COVID-19; Z79.899 Other long term (current) drug therapy
CPT/HCPCS: 36415; 80053; 83735; 85025; 86140; 99284; J7030; 99283